=== PATIENT | male | born 1990 | race Caucasian/White ===

== ENCOUNTER 2018-10-07 13:42 | Emergency (ER) | payer MEDICAID ==
[~2018-10-07] VITALS: Ht 167.6 cm; Wt 65.2 kg
[2018-10-07 13:55] VITALS: BP 116/56; PULSE 88; RESP 16; Ht 167.6 cm; Wt 65.2 kg
--- NOTE | 2018-10-07 15:23 | ERD ---
ER Documentation Chief Complaint Chief Complaint PT CAME TO ED FOR EVALUTION OF LUMP ON LT LOWER LEG HPI 28-year-old male, complaining of 6 months with painless lump above the left knee. The patient denies any recent history of trauma, no local erythema warmth or fluctuance. No reports of fever or chills, no rashes. ROS All systems reviewed and are negative except as per history of present illness. Allergies Allergies: Coded Allergies: No Known Allergy (Unverified , 10/07/18) PMhx/Soc Medical and Surgical Hx: pt denies Medical Hx, pt denies Surgical Hx Hx Alcohol Use: No Hx Substance Use: No Hx Tobacco Use: No Smoking Status: Never smoker FmHx Family History: No diabetes, No coronary disease Physical Exam Vitals Vital Signs Date Temp Pulse Resp B/P (MAP) Pulse Ox O2 O2 Flow FiO2 Time Delivery Rate 10/07/18 98.6 88 16 116/56 99 13:55 (76) Physical Exam Const: No acute distress Head: Atraumatic Eyes: Normal Conjunctiva ENT: Normal External Ears, Nose and Mouth. Neck: Full range of motion. No meningismus. Resp: Clear to auscultation bilaterally Cardio: Regular rate and rhythm, no murmurs Abd: Soft, non tender, non distended. Normal bowel sounds Skin: No petechiae or rashes Back: No midline or flank tenderness Ext: Left lower extremity: 2 x 2 cm well-defined lump, nontender, mobile, 1 cm anteriorly located below the knee. No fluctuance, no erythema, nontender, no warmth to palpation. Neur: Awake and alert Psych: Normal Mood and Affect Procedures/MDM Vital signs stable. Differential diagnosis considered include but not limited to: Cellulitis, abscess, lipoma, neoplasm of uncertain behavior. Low suspicion for acute systemic infection. Physical examination and clinical presentation consistent most likely with sebaceous inclusion cyst. During the ED course the patient remained stable, no new complaints. Treatment options and clinical impression discussed with the patient who agrees with management, at this time, I consider, but the patient is candidate for an elective procedure that can be done outpatient. The patient was instructed to follow up with the primary care provider in the next 48h. If symptoms persist, worsen or new symptoms develop, then patient should return to the ED immediately. Instructions explained and given directly by me to the patient with acknowledgment and demonstrated understanding. Disclaimer: Inadvertent spelling and grammatical errors are likely due to EHR/dictation software use and do not reflect on the overall quality of patient care. Also, please note that the electronic time recorded on this note does not necessarily reflect the actual time of the patient encounter. Departure Diagnosis: Primary Impression: Dermoid inclusion cyst Condition: Stable Additional Instructions: Thank you very much for allowing us to participate in your care. Your health and safety is our top priority at [facility]. The evaluation in the emergency department has been done to rule out an acute emergency. Chronic, [id number] conditions may have not been evaluated; therefore, you need to follow up with a primary care provider in the next 48h. If symptoms persist, worsen or new symptoms develop, then patient should return to the ED immediately. Call your primary care doctor TOMORROW for an appointment during the next 2-4 days and bring all the information provided. Have prescriptions filled and follow precisely the directions on the label. If the symptoms get worse and your provider is unavailable, return to the Emergency Department immediately. KARISSA HERNANDEZ MD Oct 07, 2018 15:23
== END 2018-10-07 15:46 | disposition home or self-care (01) ==
LOC: FTE 13:42
DX: L72.0 Epidermal cyst (principal)
CPT/HCPCS: 99282